=== PATIENT | male | born 1990 | race American Indian/Alaskan Native ===

== ENCOUNTER 2022-03-18 07:20 | Emergency (ER) | payer SELFPAY ==
[2022-03-18] MEDS ORDERED: KETOROLAC 60 MG/2 ML INJ IM ONE (12:35)
[2022-03-18] MEDS ORDERED: HYDROcodone/ACETAMINOPHEN 5-325 MG TAB PO ONE (12:35)
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
[2022-03-18 15:31] VITALS: BP 129/86
== END 2022-03-18 15:32 | disposition home or self-care (01) ==
LOC: ED 07:20
DX: M54.2 Cervicalgia (principal); M79.10 Myalgia, unspecified site; V89.2XXA Person injured in unspecified motor-vehicle accident, traffic, initial encounter; Y93.89 Activity, other specified; Y92.89 Other specified places as the place of occurrence of the external cause; Y99.8 Other external cause status
CPT/HCPCS: 70450; 70490; 96372; 99284; J1885